=== PATIENT | male | born 1970 | race Caucasian/White ===

== ENCOUNTER → 2020-02-25 | Day surgery (SDC) | payer BC ==
[~2020-02-25] MED LIST: FLOMAX0.4 MG PO; PANTOPRAZOLE SO40 MG PO; PRINIVIL20 MG PO
[2020-02-25 08:10] VITALS: BP 110/67
== END | disposition home or self-care (01) ==
LOC: ENDO 05:10
PROVIDERS: ATTEND Internal Medicine Gastroenterology
DX: K22.2 Esophageal obstruction (principal); K29.00 Acute gastritis without bleeding; K22.10 Ulcer of esophagus without bleeding; K21.0 Gastro-esophageal reflux disease with esophagitis; K44.9 Diaphragmatic hernia without obstruction or gangrene; Z71.3 Dietary counseling and surveillance; I10 Essential (primary) hypertension; Z01.812 Encounter for preprocedural laboratory examination; Z01.810 Encounter for preprocedural cardiovascular examination; Z11.59 Encounter for screening for other viral diseases
CPT/HCPCS: 43239; 43450; 93005; U0002